=== PATIENT | female | born 1955 | race African-American/Black ===

== ENCOUNTER 2023-10-11 17:31 | Emergency (ER) | payer BC, OTHER ==
[~2023-10-11] VITALS: Ht 167.6 cm; Wt 350.0 kg
[2023-10-11 17:33] VITALS: BP 146/68; PULSE 76; RESP 20; TEMP 98; O2SAT 98
== END 2023-10-11 19:58 | disposition home or self-care (01) ==
LOC: ER 17:31
DX: H54.7 Unspecified visual loss (principal); I12.0 Hypertensive chronic kidney disease with stage 5 chronic kidney disease or end stage renal disease; E11.22 Type 2 diabetes mellitus with diabetic chronic kidney disease; N18.6 End stage renal disease; Z99.2 Dependence on renal dialysis
CPT/HCPCS: 99283